=== PATIENT | male | born 1985 | race Two or more races ===

== ENCOUNTER 2019-09-06 20:35 | Emergency (ER) | payer SELFPAY ==
[2019-09-06] MEDS ORDERED: Lisinopril TAB* 10 MG PO ONE (21:07)
--- NOTE | 2019-09-06 21:10 | ED ---
Shortness of Breath - HPI Summary HPI Summary: This pt is a 34 Y/O M presenting to [facility] with a CC of SOB that is present while watching tv and started at 0400 this morning. He states that the symptoms are intermittent and last for different amounts of time. He states that this has been a common issue and has been present for months but has not thought much of it. The most recent occurrence started at 1800 tonight. He denies any wheezing and states that he has to catch his breath at times. He states that he has worse symptoms and becomes more SOB at night. He denies any coughs, fevers, chills, and headaches He states that he has had abdominal pains without nausea or vomiting. He denies any new swelling in his legs. He states that when the SOB occurs he usually has alleviation with lying down and resting. He states that he has a PMHx of HTN. He states that he used to smoke cigarettes but doesn t anymore. - History of Current Complaint Chief Complaint: EDRespiratoryDistress Time Seen by Provider: 09/06/19 21:01 Hx Obtained From: Patient Onset/Duration: Gradual Onset, Still Present Timing: Intermittent Episodes Lasting: Current Severity: None Dyspnea At: Exertion Aggravating Factors: Movement, Recumbent Position Associated Signs & Symptoms: Negative - coughs, fevers, chills, N/V, edema, wheezes, and headaches - Allergy/Home Medications Allergies/Adverse Reactions: Allergies Allergy/AdvReac Type Severity Reaction Status Date / Time No Known Allergies Allergy Verified 09/06/19 20:37 PMH/Surg Hx/FS Hx/Imm Hx Previously Healthy: Yes Cardiovascular History: Denies: Hx Hypertension Respiratory History: Denies: Hx Asthma - Surgical History Surgical History: None - Immunization History Immunizations Up to Date: Yes Infectious Disease History: No Infectious Disease History: Denies: Traveled Outside the [place] in Last 30 Days - Family History Known Family History: Negative: Cardiac Disease, Hypertension, Diabetes - Social History Occupation: Employed Full-time Lives: Alone Alcohol Use: None Hx Substance Use: No Substance Use Type: Reports: None Hx Tobacco Use: Yes Smoking Status (MU): Former Smoker Amount Used/How Often: 1/2 PPD cigarettes Review of Systems Negative: Fever, Chills Respiratory: Negative - wheezes Positive: Shortness Of Breath - states that he has to catch his breaths at times. Negative: Cough Positive: Abdominal Pain. Negative: Vomiting, Nausea Negative: Headache All Other Systems Reviewed And Are Negative: Yes Physical Exam - Summary Physical Exam Summary: Appearance: Well-appearing, Well-nourished, lying in bed comfortably, Generally healthy appearing male Skin: Warm, dry, no obvious rash Eyes: sclera anicteric, no conjunctival pallor ENT: mucous membranes moist, pharynx appears normal, moderate obesity, occludes an assessment of JVD Neck: Supple, nontender Respiratory: Clear to auscultation, no signs of respiratory distress Cardiovascular: Normal S1, S2. No murmurs. Normal distal pulses in tibial and radial bilaterally. Abdomen: Soft, nontender, normal active bowel sounds present Musculoskeletal: Normal, Strength/ROM Intact Neurological: A&Ox3, awake and alert, mentation is normal, speech is fluent and appropriate Psychiatric: affect is normal, does not appear anxious or depressed Triage Information Reviewed: Yes Vital Signs On Initial Exam: Initial Vitals Temp Pulse Resp BP Pulse Ox 96.1 F 78 18 210/119 98 09/06/19 20:38 09/06/19 20:38 09/06/19 20:38 09/06/19 20:38 09/06/19 20:38 Vital Signs Reviewed: Yes Procedures - Sedation Patient Received Moderate/Deep Sedation with Procedure: No Diagnostics - Vital Signs Vital Signs Temp Pulse Resp BP Pulse Ox 09/06/19 20:47 210/120 09/06/19 20:38 96.1 F 78 18 210/119 98 - Laboratory Result Diagrams: 09/06/19 21:29 09/06/19 21:29 Lab Statement: Any lab studies that have been ordered have been reviewed, and results considered in the medical decision making process. - Radiology CXR Radiology Interpretation Completed By: ED Physician Summary of Radiographic Findings: No acute processes. Pendng offical review. - EKG 2116 Cardiac Rate: NL - 69 BPM EKG Rhythm: Sinus Rhythm ST Segment: Normal Ectopy: None Summary of EKG Findings: NSR at 69 BPM, P waves, QRS complex, and T waves are within normal limits, T waves and intervals are normal, no ischemic changes. This is a normal EKG. Interpreted by Dr. Nieves at 212109/06/19. Course/Dx - Course Course Of Treatment: This pt is a 34 Y/O M presenting to [facility] with a CC of SOB that is present while watching tv and started at 0400 this morning. He states that the symptoms are intermittent and last for different amounts of time. He states that this has been a common issue and has been present for months but has not thought much of it. The most recent occurrence started at 1800 tonight. He denies any wheezing and states that he has to catch his breath at times. His PE found that his moderate obesisty occluded his neck and prevented a JVD assesment. Otherwise he has no abnormalities. His EKG taken at 2116 shows a NSR at 69 BPM, P waves, QRS complex, and T waves are within normal limits, T waves and intervals are normal, no ischemic changes. This is a normal EKG. He was given the following medications during his ED course: Lisinopril 20 mg, and potassium chloride. His labs show the following abnormalities: Hgb 13.2, Hct 41 , MCV 79, MCH 26, RDW 16, and potassium of 2.9. His CXR shows no acute processes. He will be discharged home with a Dx of hypokalemia, HTN, and dyspnea. - Diagnoses Provider Diagnoses: HTN (hypertension), Hypokalemia, Dyspnea Discharge ED - Sign-Out/Discharge Documenting (check all that apply): Patient Departure - discharge - Discharge Plan Condition: Stable Disposition: HOME Prescriptions: Lisinopril TAB* [Prinivil TAB 10 MG*] 10 mg PO DAILY #30 tab Patient Education Materials: Hypokalemia (ED), Chronic Hypertension (ED), Dyspnea (ED) Forms: *Work Release Referrals: Care [facility] [Outside] - As Soon As Possible - Billing Disposition and Condition Condition: STABLE Disposition: Home - Attestation Statements Document Initiated by Jose Martin: Yes Documenting Scribe: Patrick Fraga Provider For Whom Jose Martin is Documenting (Include Credential): MD Aishwarya Burnsibe Attestation: Patrick Aragon scribed for Romulo Nieves MD on 09/07/19 at 1830. Scribe Documentation Reviewed: Yes Provider Attestation: The documentation as recorded by the Patrick trujillo accurately reflects the service I personally performed and the decisions made by me, Romulo Nieves MD Status of Scribe Document: Viewed
[2019-09-06 21:37] LABS: ABS Basophils 0.1 10^3/ul (0-0.2); ABS Eosinophils 0.1 10^3/ul (0-0.6); ABS Lymphocytes 2.6 10^3/ul (1.0-4.8); ABS Monocytes 0.8 10^3/ul (0-0.8); ABS Neutrophils 4.8 10^3/ul (1.5-7.7); Eosinophil % 1.7 %; Hematocrit 41 % (42-52); Hemoglobin 13.2 g/dL (14.0-18.0); Lymphocyte % 31.4 %; Mean Corpuscular HGB Conc 33 g/dL (31-36); Mean Corpuscular Hemoglobin 26 pg (27-31); Mean Corpuscular Volume 79 fL (80-94); Mean Platelet Volume 7.9 fL (7.4-10.4); Nucleated Red Blood Cells % 0.1; Platelet Count 321 10^3/uL (150-450); Red Cell Distribution Width 16 % (10-15); White Blood Count 8.4 10^3/uL (3.5-10.8)
[2019-09-06 21:53] LABS: Albumin 4.2 g/dL (3.2-5.2); Albumin/Globulin Ratio 1.2 (1-3); BUN/Creatinine Ratio 10.4 (8-20); Calcium 9.3 mg/dL (8.6-10.3); EGFR African American 96.2 (>60); EGFR Non-African American 79.5 (>60); Globulin 3.5 g/dL (2-4); Potassium 2.9 mmol/L (3.5-5.0); Total Bilirubin 0.3 mg/dL (0.2-1.0); Total Protein 7.7 g/dL (6.4-8.9)
[2019-09-06 21:55] LABS: Troponin I 0.01 ng/mL (<0.04)
[2019-09-06] MEDS ORDERED: Potassium Chlor TAB* 20 MEQ TAB.ER PO ONE (22:38)
[2019-09-06 23:25] VITALS: BP 165/95
== END 2019-09-06 23:23 | disposition home or self-care (01) ==
LOC: ED 20:35
DX: R06.00 Dyspnea, unspecified (principal); I10 Essential (primary) hypertension; E87.6 Hypokalemia; Z87.891 Personal history of nicotine dependence
CPT/HCPCS: 36415; 71046; 80053; 83880; 84484; 85025; 93005; 99283; A9270-GY

== ENCOUNTER 2020-11-10 19:41 | Observation (INO) ==
[2020-11-10 20:46] LABS: ABS Basophils 0.1 10^3/ul (0-0.2); ABS Lymphocytes 2.1 10^3/ul (1.0-4.8); ABS Monocytes 0.9 10^3/ul (0-0.8); ABS Neutrophils 7.5 10^3/ul (1.5-7.7); Eosinophil % 0.3 %; Hematocrit 40 % (42-52); Hemoglobin 13.4 g/dL (14.0-18.0); Mean Corpuscular HGB Conc 34 g/dL (31-36); Mean Corpuscular Hemoglobin 27 pg (27-31); Mean Corpuscular Volume 80 fL (80-94); Platelet Count 310 10^3/uL (150-450); Red Blood Count 4.93 10^6 /uL (4.18-5.48); Red Cell Distribution Width 16 % (10-15); White Blood Count 10.5 10^3/uL (3.5-10.8)
[2020-11-10 21:03] LABS: ALT 16 U/L (7-52); AST 16 U/L (13-39); Albumin 4.4 g/dL (3.2-5.2); Albumin/Globulin Ratio 1.3 (1-3); Alkaline Phosphatase 84 U/L (34-104); BUN/Creatinine Ratio 10.5 (8-20); Blood Urea Nitrogen 17 mg/dL (6-24); CO2 Carbon Dioxide 33 mmol/L (22-32); Calcium 9.5 mg/dL (8.6-10.3); Chloride 103 mmol/L (101-111); EGFR African American 58.6 (>60); EGFR Non-African American 48.5 (>60); Globulin 3.3 g/dL (2-4); Glucose 116 mg/dL (70-100); Sodium 145 mmol/L (135-145); Total Protein 7.7 g/dL (6.4-8.9)
[2020-11-10 21:10] LABS: Anion Gap 9 mmol/L (2-11); Potassium 2.7 mmol/L (3.5-5.0); Troponin I 0.04 ng/mL (<0.03)
[2020-11-10] MEDS ORDERED: Potassium Chlor 20 meq TAB.ER PO ONE (21:10)
[2020-11-11 00:21] LABS: Troponin I 0.05 ng/mL (<0.03)
[2020-11-11 01:40] LABS: Magnesium 1.6 mg/dL (1.9-2.7)
[2020-11-11] MEDS ORDERED: Magnesium Sulfate IV 3 GM in NS 0.9% 100 ml BAG 100 ML IVPB ONE (01:49)
[2020-11-11] MEDS ORDERED: Labetalol IV 5 MG/ML 20 ml VIAL IV PUSH ONE (01:50)
[2020-11-11 02:15] LABS: Urine Benzodiazepine Screen None Detected (None Detect); Urine Cannabinoids Screen Presumptive Positive (None Detect); Urine Opiates Screen None Detected (None Detect)
[2020-11-11 02:32] LABS: TSH Ultra Thyroid Stim Horm 2.11 mcIU/mL (0.34-5.60)
[2020-11-11] MEDS ORDERED: Potassium Chlor 20 meq TAB.ER PO ONE (02:35)
[2020-11-11] MEDS ORDERED: KCL 20 MEQ/100 ML IVPREMIX 20 MEQ/100 ML BAG IV ONE (02:35)
[2020-11-11 03:27] LABS: Troponin I 0.05 ng/mL (<0.03)
[2020-11-11] MEDS ORDERED: Nitro 2% OINT (Nitroglycerin) 1 INCH/PAK TOPICAL ONE (03:37)
[2020-11-11] MEDS: hydrALAZINE 20 mg/ml 1 ML Vial IV IV SLOW PU PRN ×2 (03:51→11:38)
[2020-11-11 07:09] LABS: BUN/Creatinine Ratio 13.6 (8-20); Blood Urea Nitrogen 16 mg/dL (6-24); CO2 Carbon Dioxide 31 mmol/L (22-32); Calcium 8.6 mg/dL (8.6-10.3); Chloride 103 mmol/L (101-111); EGFR African American 84.5 (>60); EGFR Non-African American 69.8 (>60); Glucose 140 mg/dL (70-100); Magnesium 2.3 mg/dL (1.9-2.7); Sodium 142 mmol/L (135-145)
[2020-11-11 07:15] LABS: Anion Gap 8 mmol/L (2-11); Potassium 2.7 mmol/L (3.5-5.0); Troponin I 0.04 ng/mL (<0.03)
[2020-11-11 08:33] LABS: % Iron Saturation 21 % (15-55); Iron 67 ug/dL (50-212); Total Iron Binding Capacity 322 mcg/dL (250-450); Transferrin 230 mg/dL (203-362); Unsaturated Iron Binding < 307 ug/dL
[2020-11-11 08:54] LABS: Ferritin 56.8 ng/mL (24-336)
[2020-11-11] MEDS ORDERED: Perflutren Lipid Microsphere 3 ML VIAL ONE (09:55)
[2020-11-11 12:40] VITALS: BP 179/91
[2020-11-11 16:59] LABS: Cholesterol 238 mg/dL; HDL Cholesterol 38.6 mg/dL; LDL Cholesterol 134 mg/dL; Triglycerides 329 mg/dL
== END 2020-11-11 17:00 | disposition left against medical advice (07) ==
LOC: MED 19:41 → ED 19:41 → MED 11-11 04:47
PROVIDERS: ADMIT Student in an Organized Health Care Education/Training Program; ATTEND Internal Medicine

== ENCOUNTER 2020-12-27 17:14 | Observation (INO) ==
[2020-12-27] MEDS ORDERED: niCARdipine 0.1MG/ML IVPREMIX 20 MG/200 ML BAG IV SCH (18:00)
[2020-12-27 18:12] LABS: ABS Lymphocytes 1.6 10^3/ul (1.0-4.8); ABS Monocytes 0.7 10^3/ul (0-0.8); ABS Neutrophils 6.6 10^3/ul (1.5-7.7); Eosinophil % 0.3 %; Hematocrit 42 % (42-52); Lymphocyte % 17.7 %; Mean Corpuscular HGB Conc 34 g/dL (31-36); Mean Corpuscular Hemoglobin 27 pg (27-31); Mean Corpuscular Volume 80 fL (80-94); Mean Platelet Volume 8.4 fL (7.4-10.4); Nucleated Red Blood Cells % 0.1; Platelet Count 304 10^3/uL (150-450); Red Blood Count 5.23 10^6 /uL (4.18-5.48); Red Cell Distribution Width 15 % (10-15); White Blood Count 8.9 10^3/uL (3.5-10.8)
[2020-12-27 18:16] LABS: INR 1.2 (0.82-1.09)
[2020-12-27 18:27] LABS: Albumin 4.5 g/dL (3.2-5.2); Albumin/Globulin Ratio 1.3 (1-3); BUN/Creatinine Ratio 9.1 (8-20); Calcium 9.8 mg/dL (8.6-10.3); EGFR African American 67.7 (>60); Globulin 3.4 g/dL (2-4); Total Bilirubin 0.5 mg/dL (0.2-1.0); Total Protein 7.9 g/dL (6.4-8.9)
[2020-12-27 18:29] LABS: Troponin I 0.02 ng/mL (<0.03)
[2020-12-27 18:54] LABS: TSH Ultra Thyroid Stim Horm 0.88 mcIU/mL (0.34-5.60)
[2020-12-27] MEDS ORDERED: Potassium Chlor 20 meq TAB.ER PO ONE (18:58)
[2020-12-27 19:25] LABS: CKMB ng/mL 1.1 ng/mL (0.6-6.3)
[2020-12-27] MEDS ORDERED: Ondansetron 4 mg VIAL 2 MG/ML 2 ml VIAL IV PRN (19:58)
[2020-12-27] MEDS ORDERED: Labetalol IV 5 MG/ML 20 ml VIAL IV PUSH PRN (20:04)
[2020-12-27] MEDS ORDERED: hydrALAZINE 20 mg/ml 1 ML Vial IV IV SLOW PU PRN (20:08)
[2020-12-27 20:15] LABS: Magnesium 1.8 mg/dL (1.9-2.7)
[2020-12-27 20:21] LABS: Urine Appearance Cloudy; Urine Bilirubin Negative (Negative); Urine Blood Negative (Negative); Urine Color Yellow; Urine Glucose Negative (Negative); Urine Ketones Trace (Negative); Urine Nitrite Negative (Negative); Urine Protein Negative (Negative); Urine Specific Gravity 1.008 (1.010-1.030); Urine Urobilinogen Negative (Negative)
[2020-12-27] MEDS ORDERED: Morphine 2 MG/ML SYRINGE IV ONE (20:21)
[2020-12-28] MEDS ORDERED: Nitro 2% OINT (Nitroglycerin) 1 INCH/PAK TOPICAL ONE (00:05)
[2020-12-28 05:30] LABS: ABS Basophils 0.1 10^3/ul (0-0.2); ABS Eosinophils 0.1 10^3/ul (0-0.6); ABS Lymphocytes 3.2 10^3/ul (1.0-4.8); Eosinophil % 1.4 %; Hematocrit 40 % (42-52); Hemoglobin 13.3 g/dL (14.0-18.0); Lymphocyte % 30.5 %; Mean Corpuscular HGB Conc 33 g/dL (31-36); Mean Corpuscular Hemoglobin 27 pg (27-31); Mean Corpuscular Volume 80 fL (80-94); Mean Platelet Volume 8.3 fL (7.4-10.4); Platelet Count 288 10^3/uL (150-450); Red Blood Count 5.02 10^6 /uL (4.18-5.48); Red Cell Distribution Width 15 % (10-15); White Blood Count 10.4 10^3/uL (3.5-10.8)
[2020-12-28 05:47] LABS: BUN/Creatinine Ratio 11.7 (8-20); Calcium 9.3 mg/dL (8.6-10.3); EGFR African American 76.9 (>60); EGFR Non-African American 63.6 (>60); Magnesium 2.1 mg/dL (1.9-2.7)
[2020-12-28] MEDS ORDERED: Nitro Patch/OINT Remove PATCH TOPICAL ONE (06:30)
[2020-12-28 14:27] LABS: C Reactive Protein 5.28 mg/L (<8.01)
[2020-12-28] MEDS ORDERED: LORazepam 2 mg VIAL 1 ml IV PUSH ONE (15:04)
[2020-12-28] MEDS ORDERED: Lorazepam PYXIS KEY PRN (15:04)
[2020-12-28 15:16] LABS: Erythrocyte Sed Rate 13 mm/Hr (0-14)
[2020-12-28 18:01] LABS: Urine Appearance Cloudy; Urine Bilirubin Negative (Negative); Urine Blood Negative (Negative); Urine Color Yellow; Urine Glucose Negative (Negative); Urine Ketones 2+ (Negative); Urine Nitrite Negative (Negative); Urine Protein 1+(30 mg/dL) (Negative); Urine Specific Gravity 1.027 (1.010-1.030); Urine Urobilinogen Negative (Negative)
[2020-12-28 18:04] LABS: Urine Bacteria Absent (Absent); Urine Red Blood Cell 2+(6-10/hpf) (Absent); Urine Squamous Epithelial Cell Present (Absent); Urine White Blood Cell Trace(0-5/hpf) (Absent)
[2020-12-28 20:03] VITALS: BP 171/110
== END 2020-12-28 20:31 | disposition left against medical advice (07) ==
LOC: ED 17:14 → MEDTELE 17:14
PROVIDERS: ADMIT Student in an Organized Health Care Education/Training Program; ATTEND Internal Medicine

== ENCOUNTER 2021-02-23 23:11 | Observation (INO) ==
[2021-02-24] MEDS ORDERED: Morphine 4 MG/ML VIAL (1 ml) IV ONE (01:14)
[2021-02-24 01:24] LABS: ABS Eosinophils 0.1 10^3/ul (0-0.6); ABS Lymphocytes 2.6 10^3/ul (1.0-4.8); ABS Monocytes 0.9 10^3/ul (0-0.8); ABS Neutrophils 8.2 10^3/ul (1.5-7.7); Eosinophil % 0.5 %; Hematocrit 40 % (42-52); Hemoglobin 13.3 g/dL (14.0-18.0); Lymphocyte % 22.3 %; Mean Corpuscular HGB Conc 33 g/dL (31-36); Mean Corpuscular Hemoglobin 27 pg (27-31); Mean Corpuscular Volume 80 fL (80-94); Mean Platelet Volume 8.9 fL (7.4-10.4); Platelet Count 291 10^3/uL (150-450); Red Blood Count 4.95 10^6 /uL (4.18-5.48); Red Cell Distribution Width 15 % (10-15); White Blood Count 11.9 10^3/uL (3.5-10.8)
[2021-02-24 01:34] LABS: ALT 20 U/L (7-52); AST 25 U/L (13-39); Albumin 4.5 g/dL (3.2-5.2); Albumin/Globulin Ratio 1.5 (1-3); Alkaline Phosphatase 84 U/L (34-104); Anion Gap 11 mmol/L (2-11); Blood Urea Nitrogen 18 mg/dL (6-24); CO2 Carbon Dioxide 29 mmol/L (22-32); Calcium 9.6 mg/dL (8.6-10.3); Chloride 102 mmol/L (101-111); EGFR African American 51.3 (>60); EGFR Non-African American 42.4 (>60); Glucose 106 mg/dL (70-100); Potassium 2.8 mmol/L (3.5-5.0); Sodium 142 mmol/L (135-145); Total Protein 7.5 g/dL (6.4-8.9)
[2021-02-24] MEDS ORDERED: Potassium Chlor 20 meq TAB.ER PO ONE ×3 (01:39→22:00)
[2021-02-24 01:41] LABS: Troponin I 0.04 ng/mL (<0.03)
[2021-02-24 02:09] LABS: Magnesium 1.8 mg/dL (1.9-2.7)
[2021-02-24] MEDS ORDERED: Magnesium Sulfate 2 gm BAG 2 GM/50 ML BAG IVPB ONE (02:35)
[2021-02-24] MEDS ORDERED: Iodixanol (CONTRAST) 320 MG/ML 100 ML SDV IV ONE (02:56)
[2021-02-24 03:16] LABS: Urine Appearance Cloudy; Urine Bilirubin 1+ (Negative); Urine Blood Negative (Negative); Urine Color Amber; Urine Glucose Negative (Negative); Urine Ketones Trace (Negative); Urine Nitrite Negative (Negative); Urine Protein 2+(100 mg/dL) (Negative); Urine Specific Gravity 1.032 (1.002-1.030); Urine Urobilinogen Negative (Negative)
[2021-02-24 03:20] LABS: Urine Bacteria Absent (Absent); Urine Granular Casts Present (Absent); Urine Red Blood Cell 3+(>10/hpf) (Absent); Urine White Blood Cell 1+(6-10/hpf) (Absent)
[2021-02-24] MEDS: KCL 20 MEQ/100 ML IVPREMIX 20 MEQ/100 ML BAG IV SCH ×2 (03:33→06:12)
[2021-02-24 05:13] LABS: Troponin I 0.04 ng/mL (<0.03)
[2021-02-24] MEDS ORDERED: fentaNYL 100 mcg/2 ml 50 MCG/ML VIAL ONE (06:26)
[2021-02-24] MEDS ORDERED: fentaNYL 100 mcg/2 ml 50 MCG/ML VIAL IV SLOW PU ONE ×2 (06:44→06:45)
[2021-02-24] MEDS ORDERED: Nitroglycerin 0.6 mg/hr PATCH (15 mg) TRANSDERM ONE (09:34)
[2021-02-24 09:46] LABS: Troponin I 0.03 ng/mL (<0.03)
[2021-02-24] MEDS ORDERED: Perflutren Lipid Microsphere 3 ML VIAL ONE (13:37)
[2021-02-24] MEDS: Isosorbide Mononit ER 60mg TAB PO SCH (14:50)
[2021-02-24] MEDS: Enoxaparin 40 MG/0.4 ML SYR SUBCUT SCH (14:50)
[2021-02-24] MEDS ORDERED: Nitro Patch/OINT Remove PATCH PATCH OFF ONE (21:00)
[2021-02-24 21:07] LABS: Calcium 9.6 mg/dL (8.6-10.3); EGFR African American 71.7 (>60); EGFR Non-African American 59.3 (>60); Potassium 3.1 mmol/L (3.5-5.0)
[2021-02-24] MEDS: Senna TAB 8.6 mg TAB PO PRN (22:11)
[2021-02-24] MEDS ORDERED: Glycerin ADULT 2.4 gm SUPP PR ONE (23:00)
[2021-02-24] MEDS: Ondansetron 4 mg VIAL 2 MG/ML 2 ml VIAL IV PRN (23:00)
[2021-02-25 06:26] LABS: ABS Eosinophils 0.2 10^3/ul (0-0.6); ABS Lymphocytes 2.4 10^3/ul (1.0-4.8); ABS Monocytes 0.8 10^3/ul (0-0.8); ABS Neutrophils 4.5 10^3/ul (1.5-7.7); Eosinophil % 2.1 %; Hematocrit 36 % (42-52); Hemoglobin 12.1 g/dL (14.0-18.0); Mean Corpuscular HGB Conc 34 g/dL (31-36); Mean Corpuscular Hemoglobin 27 pg (27-31); Mean Corpuscular Volume 81 fL (80-94); Mean Platelet Volume 8.5 fL (7.4-10.4); Nucleated Red Blood Cells % 0.1; Platelet Count 239 10^3/uL (150-450); Red Blood Count 4.39 10^6 /uL (4.18-5.48); Red Cell Distribution Width 15 % (10-15); White Blood Count 7.9 10^3/uL (3.5-10.8)
[2021-02-25 06:36] LABS: Calcium 9.2 mg/dL (8.6-10.3); EGFR African American 73.6 (>60); EGFR Non-African American 60.8 (>60); HDL Cholesterol 32.9 mg/dL; Potassium 3.2 mmol/L (3.5-5.0)
[2021-02-25] MEDS ORDERED: Magnesium Hydroxide LIQ 30 ML UDC PO PRN (08:16)
[2021-02-25] MEDS ORDERED: Potassium Chlor 20 meq TAB.ER PO SCH (09:00)
[2021-02-25] MEDS: Ondansetron 4 mg VIAL 2 MG/ML 2 ml VIAL IV PRN (09:18)
[2021-02-25] MEDS: Senna TAB 8.6 mg TAB PO PRN ×2 (09:25→21:12)
[2021-02-25] MEDS: Enoxaparin 40 MG/0.4 ML SYR SUBCUT SCH (09:25)
[2021-02-25] MEDS: Potassium Chlor 20 meq TAB.ER PO SCH ×2 (09:29→21:13)
[2021-02-25] MEDS ORDERED: Prochlorperazine 5 mg/ml 2 ml VIAL (10 mg) IV ONE (09:53)
[2021-02-25] MEDS ORDERED: fentaNYL 100 mcg/2 ml 50 MCG/ML VIAL IV SLOW PU ONE (10:18)
[2021-02-25] MEDS: Isosorbide Mononit ER 60mg TAB PO SCH (10:28)
[2021-02-26 07:00] LABS: ABS Eosinophils 0.2 10^3/ul (0-0.6); ABS Monocytes 0.6 10^3/ul (0-0.8); ABS Neutrophils 4.3 10^3/ul (1.5-7.7); Eosinophil % 2.9 %; Hematocrit 38 % (42-52); Hemoglobin 12.7 g/dL (14.0-18.0); Lymphocyte % 28.3 %; Mean Corpuscular HGB Conc 34 g/dL (31-36); Mean Corpuscular Hemoglobin 27 pg (27-31); Mean Corpuscular Volume 81 fL (80-94); Mean Platelet Volume 8.5 fL (7.4-10.4); Platelet Count 259 10^3/uL (150-450); Red Blood Count 4.67 10^6 /uL (4.18-5.48); Red Cell Distribution Width 15 % (10-15); White Blood Count 7.2 10^3/uL (3.5-10.8)
[2021-02-26 07:19] LABS: Calcium 9.2 mg/dL (8.6-10.3); EGFR African American 95.7 (>60); EGFR Non-African American 79.1 (>60); Magnesium 1.7 mg/dL (1.9-2.7); Potassium 3.3 mmol/L (3.5-5.0)
[2021-02-26 07:39] VITALS: BP 175/110
[2021-02-26] MEDS ORDERED: Magnesium Sulfate 2 gm BAG 2 GM/50 ML BAG IVPB ONE (08:11)
[2021-02-26] MEDS: Potassium Chlor 20 meq TAB.ER PO SCH (09:52)
[2021-02-26] MEDS: Enoxaparin 40 MG/0.4 ML SYR SUBCUT SCH (09:53)
== END 2021-02-26 10:30 | disposition home or self-care (01) ==
LOC: MEDTELE 23:11 → ED 23:11 → MEDTELE 02-24 12:17
PROVIDERS: ADMIT Internal Medicine; ATTEND Internal Medicine

== ENCOUNTER 2021-03-20 00:54 | Inpatient (IN) ==
[2021-03-20 01:48] LABS: ABS Basophils 0.1 10^3/ul (0-0.2); ABS Eosinophils 0.1 10^3/ul (0-0.6); ABS Lymphocytes 1.8 10^3/ul (1.0-4.8); ABS Monocytes 0.9 10^3/ul (0-0.8); ABS Neutrophils 6.1 10^3/ul (1.5-7.7); Eosinophil % 0.7 %; Hematocrit 38 % (42-52); Hemoglobin 12.9 g/dL (14.0-18.0); Lymphocyte % 19.8 %; Mean Corpuscular HGB Conc 34 g/dL (31-36); Mean Corpuscular Hemoglobin 27 pg (27-31); Mean Corpuscular Volume 81 fL (80-94); Nucleated Red Blood Cells % 0.1; Platelet Count 271 10^3/uL (150-450); Red Blood Count 4.74 10^6 /uL (4.18-5.48); Red Cell Distribution Width 15 % (10-15); White Blood Count 8.9 10^3/uL (3.5-10.8)
[2021-03-20 01:58] LABS: Urine Benzodiazepine Screen None Detected (None Detect); Urine Cannabinoids Screen Presumptive Positive (None Detect); Urine Opiates Screen None Detected (None Detect)
[2021-03-20 02:03] LABS: Urine Appearance Cloudy; Urine Bilirubin 1+ (Negative); Urine Blood Negative (Negative); Urine Color Amber; Urine Glucose Negative (Negative); Urine Ketones Trace (Negative); Urine Nitrite Negative (Negative); Urine Protein 2+(100 mg/dL) (Negative); Urine Specific Gravity 1.032 (1.002-1.030); Urine Urobilinogen Negative (Negative)
[2021-03-20 02:04] LABS: ALT 17 U/L (7-52); AST 21 U/L (13-39); Albumin 4.6 g/dL (3.2-5.2); Albumin/Globulin Ratio 1.4 (1-3); Alkaline Phosphatase 78 U/L (35-149); Anion Gap 12 mmol/L (2-11); Blood Urea Nitrogen 31 mg/dL (6-24); CO2 Carbon Dioxide 24 mmol/L (22-32); Calcium 9.4 mg/dL (8.6-10.3); Chloride 105 mmol/L (101-111); EGFR African American 38.4 (>60); EGFR Non-African American 31.7 (>60); Globulin 3.2 g/dL (2-4); Glucose 114 mg/dL (70-100); Potassium 3.3 mmol/L (3.5-5.0); Sodium 141 mmol/L (135-145); Total Protein 7.8 g/dL (6.4-8.9)
[2021-03-20 02:13] LABS: Alcohol, S < 10 mg/dL (<10); Salicylate < 2.50 mg/dL (<30)
[2021-03-20 02:17] LABS: Urine Bacteria Absent (Absent); Urine Red Blood Cell 2+(6-10/hpf) (Absent); Urine Squamous Epithelial Cell Present (Absent); Urine White Blood Cell Trace(0-5/hpf) (Absent)
[2021-03-20 02:29] LABS: TSH Ultra Thyroid Stim Horm 1.92 mcIU/mL (0.34-5.60)
[2021-03-20 02:37] LABS: Acetaminophen < 15 mcg/mL
[2021-03-20] MEDS ORDERED: Al Hydrox/Mg Hydrox/Simet LIQ 30 ML UDC PO PRN (06:13)
[2021-03-20] MEDS: Clotrimazole 1% CREAM 30 gm TOPICAL SCH ×3 (09:53→21:12)
[2021-03-20] MEDS: Vitamin THERAPEUTIC TAB PO SCH (09:53)
[2021-03-20] MEDS: Potassium Chlor 20 meq TAB.ER PO SCH ×3 (09:53→21:12)
[2021-03-20] MEDS: Amoxicillin/Clavul 875/125 TAB (Augmentin 875 tab) PO SCH ×2 (09:53→21:09)
[2021-03-21 08:21] LABS: HDL Cholesterol 34.5 mg/dL
[2021-03-21] MEDS: Potassium Chlor 20 meq TAB.ER PO SCH (09:25)
[2021-03-21] MEDS: Vitamin THERAPEUTIC TAB PO SCH (09:25)
[2021-03-21] MEDS: Clotrimazole 1% CREAM 30 gm TOPICAL SCH ×2 (09:25→22:27)
[2021-03-21] MEDS: Amoxicillin/Clavul 875/125 TAB (Augmentin 875 tab) PO SCH ×2 (09:25→22:26)
[2021-03-21 11:51] LABS: Calcium 9.1 mg/dL (8.6-10.3); EGFR African American 82.9 (>60); EGFR Non-African American 68.5 (>60); Potassium 3.2 mmol/L (3.5-5.0)
[2021-03-21 12:52] LABS: Urine Sodium Concentration < 18 mmol/L
[2021-03-21 13:10] LABS: Urine Creatinine Concentration 552.68 mg/dL
[2021-03-21] MEDS ORDERED: Potassium Chlor 20 meq TAB.ER PO ONE (13:36)
[2021-03-21] MEDS ORDERED: Potassium Chloride LIQUID 20 MEQ/15 ML LIQUID PO ONE (14:20)
[2021-03-21] MEDS: Potassium Chloride LIQUID 20 MEQ/15 ML LIQUID PO SCH (22:30)
[2021-03-22] MEDS: Potassium Chloride LIQUID 20 MEQ/15 ML LIQUID PO SCH ×2 (09:05→20:57)
[2021-03-22] MEDS: Amoxicillin/Clavul 875/125 TAB (Augmentin 875 tab) PO SCH ×2 (09:06→20:54)
[2021-03-22] MEDS: Vitamin THERAPEUTIC TAB PO SCH (09:06)
[2021-03-22] MEDS: Clotrimazole 1% CREAM 30 gm TOPICAL SCH ×2 (09:06→20:57)
[2021-03-22 12:52] LABS: Calcium 9.7 mg/dL (8.6-10.3); EGFR African American 87.1 (>60); Magnesium 1.7 mg/dL (1.9-2.7); Potassium 3.9 mmol/L (3.5-5.0)
[2021-03-23 07:48] LABS: Calcium 9.2 mg/dL (8.6-10.3); EGFR African American 98.9 (>60); EGFR Non-African American 81.7 (>60); Magnesium 1.7 mg/dL (1.9-2.7); Potassium 3.4 mmol/L (3.5-5.0)
[2021-03-23] MEDS: Clotrimazole 1% CREAM 30 gm TOPICAL SCH ×2 (08:47→21:42)
[2021-03-23] MEDS: Vitamin THERAPEUTIC TAB PO SCH (08:52)
[2021-03-23] MEDS: Amoxicillin/Clavul 875/125 TAB (Augmentin 875 tab) PO SCH ×2 (08:53→21:38)
[2021-03-23] MEDS: Potassium Chloride LIQUID 20 MEQ/15 ML LIQUID PO SCH ×2 (08:55→21:42)
[2021-03-24] MEDS: Clotrimazole 1% CREAM 30 gm TOPICAL SCH ×2 (08:08→23:29)
[2021-03-24] MEDS: Vitamin THERAPEUTIC TAB PO SCH (08:50)
[2021-03-24] MEDS: Amoxicillin/Clavul 875/125 TAB (Augmentin 875 tab) PO SCH ×2 (08:53→23:27)
[2021-03-24] MEDS: Potassium Chloride LIQUID 20 MEQ/15 ML LIQUID PO SCH ×2 (08:54→23:29)
[2021-03-24] MEDS ORDERED: cloNIDine 0.1 MG PATCH 0.1 MG/24 HR 7 DAY PATCH TRANSDERM SCH (16:00)
[2021-03-25 08:23] LABS: Calcium 9.7 mg/dL (8.6-10.3); EGFR African American 90.7 (>60); Magnesium 1.8 mg/dL (1.9-2.7); Potassium 3.7 mmol/L (3.5-5.0)
[2021-03-25] MEDS: Clotrimazole 1% CREAM 30 gm TOPICAL SCH ×2 (09:26→20:32)
[2021-03-25] MEDS: Amoxicillin/Clavul 875/125 TAB (Augmentin 875 tab) PO SCH ×2 (09:26→20:28)
[2021-03-25] MEDS: Vitamin THERAPEUTIC TAB PO SCH (09:26)
[2021-03-25] MEDS: Potassium Chloride LIQUID 20 MEQ/15 ML LIQUID PO SCH ×2 (09:26→20:32)
[2021-03-26 07:58] VITALS: BP 159/98
[2021-03-26] MEDS: Amoxicillin/Clavul 875/125 TAB (Augmentin 875 tab) PO SCH (09:08)
[2021-03-26] MEDS: Vitamin THERAPEUTIC TAB PO SCH (09:09)
[2021-03-26] MEDS: Potassium Chloride LIQUID 20 MEQ/15 ML LIQUID PO SCH (09:12)
[2021-03-26] MEDS: Clotrimazole 1% CREAM 30 gm TOPICAL SCH (09:12)
== END 2021-03-26 13:20 | disposition home or self-care (01) | DRG 754 ==
LOC: ED 00:54 → BSU 04:52
PROVIDERS: ADMIT Psychiatry & Neurology Psychiatry; ATTEND Psychiatry & Neurology Psychiatry

== ENCOUNTER 2022-06-20 21:03 | Inpatient (IN) ==
[2022-06-20 21:35] LABS: ABS Eosinophils 0.1 10^3/ul (0-0.6); ABS Lymphocytes 2.3 10^3/ul (1.0-4.8); ABS Monocytes 0.6 10^3/ul (0-0.8); ABS Neutrophils 3.7 10^3/ul (1.5-7.7); Eosinophil % 0.9 %; Hematocrit 37 % (42-52); Hemoglobin 12.3 g/dL (14.0-18.0); Lymphocyte % 34.9 %; Mean Corpuscular HGB Conc 34 g/dL (31-36); Mean Corpuscular Hemoglobin 27 pg (27-31); Mean Corpuscular Volume 79 fL (80-94); Mean Platelet Volume 8.2 fL (7.4-10.4); Platelet Count 249 10^3/uL (150-450); Red Blood Count 4.62 10^6 /uL (4.18-5.48); Red Cell Distribution Width 15 % (10-15); White Blood Count 6.7 10^3/uL (3.5-10.8)
[2022-06-20 21:48] LABS: INR 1.1 (0.89-1.11)
[2022-06-20 22:22] LABS: Albumin 4.2 g/dL (3.2-5.2); Albumin/Globulin Ratio 1.5 (1-3); Calcium 9.3 mg/dL (8.6-10.3); Globulin 2.8 g/dL (2-4); Total Bilirubin 0.4 mg/dL (0.2-1.0); eGFR CKD-EPI 65.4 (>60)
[2022-06-20 22:24] LABS: Potassium 2.7 mmol/L (3.5-5.0)
[2022-06-20] MEDS ORDERED: Labetalol IV 5 MG/ML 20 ml VIAL IV PUSH ONE (23:17)
[2022-06-20] MEDS ORDERED: KCL 10 MEQ/50 ML IVPREMIX 10 MEQ/50 ML BAG IV ONE (23:17)
[2022-06-20] MEDS ORDERED: Potassium Chlor 20 meq TAB.ER PO ONE (23:17)
[2022-06-20] MEDS ORDERED: Nitro 2% OINT (Nitroglycerin) 1 INCH/PAK TOPICAL ONE (23:24)
[2022-06-20 23:26] LABS: High Sensitivity Troponin 1 Hr 21 pg/mL (<20)
[2022-06-20] MEDS ORDERED: Potassium Chloride LIQUID 20 MEQ/15 ML LIQUID PO ONE (23:54)
[2022-06-21] MEDS: KCL 20 MEQ/100 ML IVPREMIX 20 MEQ/100 ML BAG IV SCH ×3 (00:20→09:11)
[2022-06-21] MEDS ORDERED: Iohexol 350 (CONTRAST) 500 ML MDV IV ONE (01:10)
[2022-06-21] MEDS ORDERED: Morphine 2 MG/ML SYRINGE IV PRN (01:13)
[2022-06-21] MEDS ORDERED: HYDROmorphone 1 MG/1 ML SYRINGE IV SLOW PU ONE (01:30)
[2022-06-21 04:24] LABS: ABS Eosinophils 0.1 10^3/ul (0-0.6); ABS Lymphocytes 2.7 10^3/ul (1.0-4.8); ABS Monocytes 0.6 10^3/ul (0-0.8); ABS Neutrophils 3.2 10^3/ul (1.5-7.7); Eosinophil % 1.8 %; Hematocrit 34 % (42-52); Hemoglobin 11.3 g/dL (14.0-18.0); Lymphocyte % 40.2 %; Mean Corpuscular HGB Conc 33 g/dL (31-36); Mean Corpuscular Hemoglobin 26 pg (27-31); Mean Corpuscular Volume 79 fL (80-94); Nucleated Red Blood Cells % 0.1; Platelet Count 222 10^3/uL (150-450); Red Blood Count 4.33 10^6 /uL (4.18-5.48); Red Cell Distribution Width 16 % (10-15); White Blood Count 6.7 10^3/uL (3.5-10.8)
[2022-06-21] MEDS ORDERED: NS 0.9% 1000 ml BAG 1,000 ML IV SCH (04:30)
[2022-06-21 05:02] LABS: Urine Benzodiazepine Screen None Detected (None Detect); Urine Cannabinoids Screen Presumptive Positive (None Detect); Urine Opiates Screen None Detected (None Detect)
[2022-06-21 05:06] LABS: HDL Cholesterol 33.2 mg/dL; Magnesium 1.5 mg/dL (1.9-2.7); eGFR CKD-EPI 95.4 (>60)
[2022-06-21 05:10] LABS: Potassium 2.6 mmol/L (3.5-5.0)
[2022-06-21 05:20] LABS: TSH Ultra Thyroid Stim Horm 1.05 mcIU/mL (0.34-5.60)
[2022-06-21] MEDS ORDERED: HYDROmorphone 0.5 MG/0.5 ML SYRINGE IV PRN (06:30)
[2022-06-21] MEDS ORDERED: Magnesium Sulfate IV 3 GM in NS 0.9% 100 ml BAG 100 ML IVPB ONE ×2 (08:25→15:00)
[2022-06-21] MEDS ORDERED: Regadenoson 0.4 MG/5 ML SYRINGE ONE (09:18)
[2022-06-21] MEDS ORDERED: Magnesium Sulfate 2 gm BAG 2 GM/50 ML BAG IVPB ONE ×2 (12:00→17:00)
[2022-06-21 19:21] LABS: Calcium 9.9 mg/dL (8.6-10.3); Magnesium 2.5 mg/dL (1.9-2.7); Potassium 2.9 mmol/L (3.5-5.0); eGFR CKD-EPI 90.1 (>60)
[2022-06-22 05:57] LABS: ABS Eosinophils 0.1 10^3/ul (0-0.6); ABS Lymphocytes 2.1 10^3/ul (1.0-4.8); ABS Monocytes 0.5 10^3/ul (0-0.8); ABS Neutrophils 3.5 10^3/ul (1.5-7.7); Eosinophil % 1.4 %; Hematocrit 41 % (42-52); Hemoglobin 13.3 g/dL (14.0-18.0); Mean Corpuscular HGB Conc 33 g/dL (31-36); Mean Corpuscular Hemoglobin 26 pg (27-31); Mean Corpuscular Volume 79 fL (80-94); Mean Platelet Volume 8.2 fL (7.4-10.4); Nucleated Red Blood Cells % 0.1; Platelet Count 243 10^3/uL (150-450); Red Blood Count 5.18 10^6 /uL (4.18-5.48); Red Cell Distribution Width 15 % (10-15); White Blood Count 6.3 10^3/uL (3.5-10.8)
[2022-06-22 06:33] LABS: Calcium 9.5 mg/dL (8.6-10.3); Magnesium 2.1 mg/dL (1.9-2.7); Phosphorus 3.9 mg/dL (2.5-5.0); Potassium 2.8 mmol/L (3.5-5.0); eGFR CKD-EPI 91.1 (>60)
[2022-06-22] MEDS: KCL 20 MEQ/100 ML IVPREMIX 20 MEQ/100 ML BAG IV SCH ×3 (10:19→15:37)
[2022-06-22 16:39] LABS: Blood Urea Nitrogen 18 mg/dL (6-24); CO2 Carbon Dioxide 29 mmol/L (22-32); Calcium 9.8 mg/dL (8.6-10.3); Chloride 102 mmol/L (101-111); Glucose 108 mg/dL (70-100); Sodium 140 mmol/L (135-145); eGFR CKD-EPI 80.2 (>60)
[2022-06-22 16:42] LABS: Anion Gap 9 mmol/L (2-11)
[2022-06-23] MEDS ORDERED: Ondansetron ODT 4 mg TAB 4 MG TAB SL PRN (07:53)
[2022-06-23] MEDS ORDERED: Ondansetron 4 mg VIAL 2 MG/ML 2 ml VIAL IV PRN (07:54)
[2022-06-23 08:10] LABS: ABS Eosinophils 0.1 10^3/ul (0-0.6); ABS Lymphocytes 2.4 10^3/ul (1.0-4.8); ABS Monocytes 0.5 10^3/ul (0-0.8); ABS Neutrophils 3.8 10^3/ul (1.5-7.7); Hematocrit 40 % (42-52); Hemoglobin 13.4 g/dL (14.0-18.0); Lymphocyte % 34.9 %; Mean Corpuscular HGB Conc 34 g/dL (31-36); Mean Corpuscular Hemoglobin 26 pg (27-31); Mean Corpuscular Volume 79 fL (80-94); Mean Platelet Volume 8.3 fL (7.4-10.4); Platelet Count 275 10^3/uL (150-450); Red Blood Count 5.07 10^6 /uL (4.18-5.48); Red Cell Distribution Width 15 % (10-15); White Blood Count 6.8 10^3/uL (3.5-10.8)
[2022-06-23 08:46] LABS: Calcium 9.5 mg/dL (8.6-10.3); Magnesium 1.8 mg/dL (1.9-2.7); Potassium 3.4 mmol/L (3.5-5.0); eGFR CKD-EPI 95.4 (>60)
[2022-06-23] MEDS ORDERED: Senna TAB 8.6 mg TAB PO ONE (09:46)
[2022-06-23] MEDS ORDERED: Polyethylene Glycol 3350 17 GM PACKET PO ONE (09:47)
[2022-06-23] MEDS ORDERED: Magnesium Sulfate 2 gm BAG 2 GM/50 ML BAG IVPB ONE (11:50)
[2022-06-23] MEDS: Acetaminophen IV 1 GM/100ML 1,000 MG/100 ML BAG IV PRN ×2 (12:11→22:50)
[2022-06-23 14:12] LABS: Phosphorus 3.1 mg/dL (2.5-5.0)
[2022-06-23] MEDS: KCL 20 MEQ/100 ML IVPREMIX 20 MEQ/100 ML BAG IV SCH (17:25)
[2022-06-24] MEDS: KCL 20 MEQ/100 ML IVPREMIX 20 MEQ/100 ML BAG IV SCH ×2 (00:31→03:43)
[2022-06-24] MEDS ORDERED: KCL 20 MEQ/100 ML IVPREMIX 20 MEQ/100 ML BAG ONE (03:23)
[2022-06-24 08:46] VITALS: BP 146/83
[2022-06-24 10:22] LABS: Calcium 9.5 mg/dL (8.6-10.3); Magnesium 1.9 mg/dL (1.9-2.7); Phosphorus 2.4 mg/dL (2.5-5.0); Potassium 3.7 mmol/L (3.5-5.0); eGFR CKD-EPI 103.8 (>60)
== END 2022-06-24 12:10 | disposition home or self-care (01) | DRG 199 ==
LOC: ED 21:03 → EDHOLD 21:03 → SUATTDRO 06-21 05:03 → EDHOLD 06-21 15:06 → MEDTELE 06-21 16:25
PROVIDERS: ADMIT Internal Medicine; ATTEND Internal Medicine

== ENCOUNTER 2022-08-31 17:22 | Inpatient (IN) ==
[2022-08-31 18:14] LABS: Urine Benzodiazepine Screen None Detected (None Detect); Urine Cannabinoids Screen Presumptive Positive (None Detect); Urine Opiates Screen None Detected (None Detect)
[2022-08-31] MEDS ORDERED: Al Hydrox/Mg Hydrox/Simet LIQ 30 ML UDC PO PRN (19:34)
[2022-09-01 00:43] LABS: ABS Basophils 0.1 10^3/ul (0-0.2); ABS Eosinophils 0.1 10^3/ul (0-0.6); ABS Lymphocytes 2.5 10^3/ul (1.0-4.8); ABS Monocytes 0.7 10^3/ul (0-0.8); ABS Neutrophils 4.5 10^3/ul (1.5-7.7); Eosinophil % 1.9 %; Hematocrit 41 % (42-52); Hemoglobin 13.7 g/dL (14.0-18.0); Lymphocyte % 31.5 %; Mean Corpuscular HGB Conc 33 g/dL (31-36); Mean Corpuscular Hemoglobin 27 pg (27-31); Mean Corpuscular Volume 80 fL (80-94); Nucleated Red Blood Cells % 0.1; Platelet Count 255 10^3/uL (150-450); Red Blood Count 5.14 10^6 /uL (4.18-5.48); Red Cell Distribution Width 15 % (10-15)
[2022-09-01 01:17] LABS: Albumin 4.4 g/dL (3.2-5.2); Albumin/Globulin Ratio 1.5 (1-3); Calcium 9.5 mg/dL (8.6-10.3); Globulin 2.9 g/dL (2-4); Potassium 2.9 mmol/L (3.5-5.0); Total Bilirubin 0.4 mg/dL (0.2-1.0); Total Protein 7.3 g/dL (6.4-8.9); eGFR CKD-EPI 72.1 (>60)
[2022-09-01] MEDS ORDERED: Potassium Chlor 20 meq TAB.ER PO SCH (09:00)
[2022-09-01 09:29] LABS: HDL Cholesterol 43.9 mg/dL
[2022-09-02] MEDS: Potassium Chlor 10 meq TAB PO SCH (08:46)
[2022-09-03] MEDS: Potassium Chlor 10 meq TAB PO SCH (07:35)
[2022-09-03 16:19] LABS: Blood Urea Nitrogen 23 mg/dL (6-24); CO2 Carbon Dioxide 27 mmol/L (22-32); Chloride 106 mmol/L (101-111); Glucose 99 mg/dL (70-100); Sodium 140 mmol/L (135-145); eGFR CKD-EPI 86.2 (>60)
[2022-09-03 16:29] LABS: Anion Gap 7 mmol/L (2-11)
[2022-09-04] MEDS: Potassium Chlor 10 meq TAB PO SCH (09:10)
[2022-09-05] MEDS: Potassium Chlor 10 meq TAB PO SCH (07:36)
[2022-09-06 07:32] VITALS: BP 180/109
[2022-09-06] MEDS: Potassium Chlor 10 meq TAB PO SCH (08:25)
== END 2022-09-06 15:15 | disposition home or self-care (01) | DRG 753 ==
LOC: ED 17:22 → EDHOLD 19:34 → BSU 23:51
PROVIDERS: ADMIT Psychiatry & Neurology Psychiatry; ATTEND Psychiatry & Neurology Psychiatry